=== PATIENT | male | born 1985 | race Caucasian/White ===

== ENCOUNTER 2021-03-16 14:40 | Emergency (ER) | payer SELFPAY ==
[~2021-03-16] VITALS: Ht 188 cm; Wt 106.8 kg
[2021-03-16 15:24] VITALS: BP 111/68
[2021-03-16] MEDS ORDERED: CefTRIAXone 1000mg IM Kit (w/lidocaine diluent) IM STA (16:46)
[2021-03-16] MEDS ORDERED: azithromycin 250mg tablet PO ONE (16:50)
[2021-03-16] MEDS ORDERED: metroNIDAZOLE 500mg tablet PO ONE (16:50)
== END 2021-03-16 17:25 | disposition home or self-care (01) ==
LOC: ER 14:41
DX: A64 Unspecified sexually transmitted disease (principal)
CPT/HCPCS: 36415; 87491; 87591; 96372; 99284; J0696; J3490